=== PATIENT | female | born 1950 | race Caucasian/White ===

== ENCOUNTER 2018-01-21 15:08 | Inpatient (IN) | payer OTHER ==
[~2018-01-21] VITALS: Ht 154.9 cm; Wt 121.1 kg
[~2018-01-21 15:08] MED LIST: ANTACID PO; ASPIR 8181 M1 PO; CARDIZEM CD,CA180 MG PO; CARDIZEM120 MG PO; CATAPRES0.3 MG PO; CHOLESTROL MED PO; CLONIDINE PO; COMBIGAN O20 DROP/5 LEFT EYE; DIAMOX250 MG PO; DIOVAN320 MG PO; DULERA 100 MCG/13 GM IH; EXFORGE 5/321 TABLET PO; FAMOTIDINE20 MG PO; HYDROCHLOROTH12.5 M3 PO; ISOPTO CARPINE15 M1 LEFT EYE; LATANOPROST2.5 ML BOTH EYES; LISINOPRIL PO; MELOXICAM15 MG PO; METFORMIN HCL1000 MG PO; METFORMIN PO; MULTIVITAMIN1 EAC2; SERTRALINE HCL50 MG PO; SERTRALINE PO; VENTOLIN HFA18 GM IH; ZITHROMAX Z-PA250 MG PO; clonidine; metformin; sertraline
[2018-01-21 15:43] LABS: HEMATOCRIT 31.4 % (36.0-46.0); HEMOGLOBIN 10.4 G/DL (11.9-15.5); MCH 28.7 PG (29.0-34.0); MCHC 33.1 G/DL (30.0-36.0); MCV 86.5 FL (83-99); PLATELET COUNT 273 K/uL (156-360); RBC DIS.WIDTH-CV 14.6 % (11.8-14.6); RBC DIS.WIDTH-SD 45.6 % (39-53); RED BLOOD COUNT 3.63 M/uL (3.80-5.20); WHITE BLOOD COUNT 8.5 K/uL (4.1-10.2)
[2018-01-21 16:03] LABS: TROP-I INTERPRETATION NEGATIVE; TROPONIN-I < 0.01 ng/mL (0.0-0.30)
[2018-01-21 16:11] LABS: CHLORIDE 109 MEQ/L (99-109); POTASSIUM 4.8 MEQ/L (3.7-5.4); SODIUM 138 MEQ/L (136-147)
[2018-01-21 16:16] LABS: CREATININE 2.2 MG/DL (0.6-1.3); GFR ESTIMATE (CALCULATED) 24 mL/min/; GLUCOSE 193 mg/dL (70-99); UREA NITROGEN (BUN) 52 mg/dL (9-23)
[2018-01-21] MEDS ORDERED: CARDIZEM120 MG PO ×2 (19:46→19:47)
[2018-01-21] MEDS ORDERED: APRESOLINE50 MG PO (19:47)
[2018-01-21] MEDS ORDERED: HYDROCHLOROTHIA25 MG PO (19:47)
[2018-01-21] MEDS ORDERED: TRAMADOL HCL50 MG PO (19:48)
[2018-01-21] MEDS ORDERED: TYLENOL ARTHRI650 MG PO (19:48)
[2018-01-21] MEDS ORDERED: TOUJEO SOL300 UNIT/1 SC (19:48)
[2018-01-21] MEDS ORDERED: BUSPAR10 MG PO (19:48)
[2018-01-21] MEDS ORDERED: HUMALOG100 UNIT/2 SC (19:49)
[2018-01-21] MEDS ORDERED: VENTOLIN HFA18 GM IH (19:49)
[2018-01-21] MEDS ORDERED: CO Q-10200 MG PO (19:49)
[2018-01-21] MEDS ORDERED: VITAMIN D32000 UNI1 PO (19:49)
[2018-01-21 21:49] LABS: BASE EXCESS -6.3 mEq/L (-3 to +3); BICARBONATE 19.7 mEq/L (22-26); CARBOXY HGB 1.8 % (0-5); PCO2 40 mm Hg (35-45); PO2 45 mm Hg (80-100)
[2018-01-21 21:50] LABS: COMMENTS - BLOOD GASES C+ DR IS AWARE; DEVICE NC; O2 FLOW 2 L/MIN; SITE RR; TOTAL RESP RATE 16 resp/min
[2018-01-21 23:14] VITALS: BP 153/67
[2018-01-22] VITALS (7 sets, daily range): BP systolic 120–185; BP diastolic 56–79
[2018-01-22 05:37] LABS: HEMATOCRIT 33.4 % (36.0-46.0); HEMOGLOBIN 10.7 G/DL (11.9-15.5); MCH 28.2 PG (29.0-34.0); MCV 88.1 FL (83-99); PLATELET COUNT 328 K/uL (156-360); RBC DIS.WIDTH-CV 14.5 % (11.8-14.6); RBC DIS.WIDTH-SD 46.6 % (39-53); RED BLOOD COUNT 3.79 M/uL (3.80-5.20); WHITE BLOOD COUNT 11.1 K/uL (4.1-10.2)
[2018-01-22 06:09] LABS: CHLORIDE 105 MEQ/L (99-109); GFR ESTIMATE (CALCULATED) 17 mL/min/; POTASSIUM 5.2 MEQ/L (3.7-5.4); SODIUM 138 MEQ/L (136-147); UREA NITROGEN (BUN) 58 mg/dL (9-23)
[2018-01-22 06:29] LABS: GLUCOSE 385 mg/dL (70-99)
[2018-01-22 19:04] LABS: COMMENTS - BLOOD GASES C+A+; DEVICE NO DEVICE; FI02 21 %; O2 FLOW 0 L/MIN; PCO2 37 mm Hg (35-45); PO2 61 mm Hg (80-100); SITE RR
[2018-01-22 19:05] LABS: BASE EXCESS -9.2 mEq/L (-3 to +3); BICARBONATE 17 mEq/L (22-26); CARBOXY HGB 1.2 % (0-5); METHEMOGLOBIN 0.9 % (0-1.5); pH 7.27 (7.35-7.45)
[2018-01-22 21:45] LABS: ALBUMIN 4.3 G/DL (3.2-4.8); ALKALINE PHOSPHATASE 63 IU/L (3-129); ALT (GPT) 25 IU/L (3-49); AST (GOT) 18 IU/L (2-34); CHLORIDE 100 MEQ/L (99-109); CREATININE 3.4 MG/DL (0.6-1.3); GFR ESTIMATE (CALCULATED) 14 mL/min/; GLUCOSE 285 mg/dL (70-99); POTASSIUM 5.7 MEQ/L (3.7-5.4); SODIUM 132 MEQ/L (136-147); TOTAL BILIRUBIN 0.3 MG/DL (0.0-1.0); TOTAL PROTEIN 6.8 G/DL (6.4-8.3); UREA NITROGEN (BUN) 77 mg/dL (9-23)
[2018-01-22 23:51] LABS: BASE EXCESS -11.6 mEq/L (-3 to +3); BICARBONATE 14.4 mEq/L (22-26); CARBOXY HGB 1.1 % (0-5); COMMENTS - BLOOD GASES C+A+; DEVICE NC; METHEMOGLOBIN 0.7 % (0-1.5); O2 FLOW 2 L/MIN; PCO2 32 mm Hg (35-45); PO2 65 mm Hg (80-100); SITE RR
[2018-01-22 23:52] LABS: pH 7.26 (7.35-7.45)
[2018-01-23] VITALS (30 sets, daily range): BP systolic 70–182; BP diastolic 32–100
[2018-01-23 00:26] LABS: BASOPHIL (%) 0.1 % (0-1); EOSINOPHIL (%) 0 % (0-5); HEMATOCRIT 30.7 % (36.0-46.0); HEMOGLOBIN 10.4 G/DL (11.9-15.5); IMMATURE GRANULOCYTE (%) 1.5 % (0.0-0.7); LYMPHOCYTE (%) 4.3 % (15-42); LYMPHOCYTE COUNT 0.7 K/uL (1.0-2.8); MCH 29.1 PG (29.0-34.0); MCHC 33.9 G/DL (30.0-36.0); MCV 85.8 FL (83-99); MONOCYTE (%) 1.6 % (3-12); MONOCYTE COUNT 0.3 K/uL (0-0.8); NEUTROPHIL (%) 92.5 % (45-76); NEUTROPHIL COUNT 15.7 K/uL (1.8-6.4); NRBC (%) 0.1 /100 WBC (0-0); PLATELET COUNT 337 K/uL (156-360); RBC DIS.WIDTH-CV 14.6 % (11.8-14.6); RBC DIS.WIDTH-SD 45.3 % (39-53); RED BLOOD COUNT 3.58 M/uL (3.80-5.20)
[2018-01-23 00:53] LABS: ALBUMIN 3.8 G/DL (3.2-4.8); ALKALINE PHOSPHATASE 56 IU/L (3-129); ALT (GPT) 24 IU/L (3-49); AST (GOT) 19 IU/L (2-34); CHLORIDE 101 MEQ/L (99-109); GLUCOSE 301 mg/dL (70-99); SODIUM 129 MEQ/L (136-147); UREA NITROGEN (BUN) 83 mg/dL (9-23)
[2018-01-23 00:56] LABS: POTASSIUM 6.4 MEQ/L (3.7-5.4); TOTAL BILIRUBIN 0.2 MG/DL (0.0-1.0); TROP-I INTERPRETATION NEGATIVE; TROPONIN-I 0.05 ng/mL (0.0-0.30)
[2018-01-23 01:59] LABS: CREATININE 3.6 MG/DL (0.6-1.3); GFR ESTIMATE (CALCULATED) 13 mL/min/
[2018-01-23 04:58] LABS: HEMATOCRIT 31.1 % (36.0-46.0); HEMOGLOBIN 10.1 G/DL (11.9-15.5); MCH 28.4 PG (29.0-34.0); MCHC 32.5 G/DL (30.0-36.0); MCV 87.4 FL (83-99); NRBC (%) 0.2 /100 WBC (0-0); PLATELET COUNT 282 K/uL (156-360); RBC DIS.WIDTH-CV 14.6 % (11.8-14.6); RBC DIS.WIDTH-SD 46.8 % (39-53); RED BLOOD COUNT 3.56 M/uL (3.80-5.20); WHITE BLOOD COUNT 17.1 K/uL (4.1-10.2)
[2018-01-23 06:13] LABS: ALBUMIN 3.6 G/DL (3.2-4.8); ALKALINE PHOSPHATASE 62 IU/L (3-129); ALT (GPT) 74 IU/L (3-49); AST (GOT) 90 IU/L (2-34); CHLORIDE 102 MEQ/L (99-109); CREATININE 3.6 MG/DL (0.6-1.3); GFR ESTIMATE (CALCULATED) 13 mL/min/; GLUCOSE 253 mg/dL (70-99); POTASSIUM 5.9 MEQ/L (3.7-5.4); SODIUM 136 MEQ/L (136-147); TOTAL BILIRUBIN 0.3 MG/DL (0.0-1.0); TOTAL PROTEIN 5.7 G/DL (6.4-8.3); UREA NITROGEN (BUN) 88 mg/dL (9-23)
[2018-01-23 06:16] LABS: ALBUMIN 3.6 G/DL (3.2-4.8); CHLORIDE 102 MEQ/L (99-109); CREATININE 3.6 MG/DL (0.6-1.3); GFR ESTIMATE (CALCULATED) 13 mL/min/; GLUCOSE 257 mg/dL (70-99); POTASSIUM 5.6 MEQ/L (3.7-5.4); SODIUM 135 MEQ/L (136-147); UREA NITROGEN (BUN) 86 mg/dL (9-23); URIC ACID 8.1 mg/dL (3.1-9.2)
[2018-01-23 07:30] LABS: BICARBONATE 20.7 mEq/L (22-26); METHEMOGLOBIN 0.5 % (0-1.5); PCO2 45 mm Hg (35-45); PO2 52 mm Hg (80-100)
[2018-01-23 07:31] LABS: COMMENTS - BLOOD GASES A+C+; DEVICE NC; O2 FLOW 5 L/MIN; SITE RR; pH 7.27 (7.35-7.45)
[2018-01-23 10:34] LABS: TROP-I INTERPRETATION NEGATIVE; TROPONIN-I 0.07 ng/mL (0.0-0.30)
[2018-01-23 12:51] LABS: URINE TOTAL PROTEIN 74 MG/DL (0-10)
[2018-01-23 13:10] LABS: APPEARANCE CLEAR ((CLEAR)); BILIRUBIN NEGATIVE; BLOOD SMALL; COLOR STRAW ((YELLOW)); GLUCOSE (STRIP) 50; KETONES NEGATIVE; LEUKOCYTES NEGATIVE; NITRITE NEGATIVE; PROTEIN (STRIP) 100; SPECIFIC GRAVITY 1.011 (1.000-1.030); UROBILINOGEN 0.2 MG/DL (0.2-1.0)
[2018-01-23 13:13] LABS: BACTERIA NONE SEEN /HPF; EPITHELIAL CELLS RARE /HPF; MUCUS TRACE /LPF; RED BLOOD CELLS 0-5 /HPF (0-5); WHITE BLOOD CELLS 0-5 /HPF (0-5)
[2018-01-23 17:19] LABS: APPEARANCE CLEAR ((CLEAR)); BILIRUBIN NEGATIVE; BLOOD SMALL; COLOR STRAW ((YELLOW)); GLUCOSE (STRIP) 50; KETONES NEGATIVE; LEUKOCYTES NEGATIVE; NITRITE NEGATIVE; PROTEIN (STRIP) 100; SPECIFIC GRAVITY 1.011 (1.000-1.030); UROBILINOGEN 0.2 MG/DL (0.2-1.0)
[2018-01-23 17:20] LABS: BACTERIA NONE SEEN /HPF; EPITHELIAL CELLS RARE /HPF; MUCUS TRACE /LPF; RED BLOOD CELLS 0-5 /HPF (0-5); WHITE BLOOD CELLS 0-5 /HPF (0-5)
[2018-01-23 18:31] LABS: CHLORIDE 105 mEq/L (99-109); POTASSIUM 5.8 mEq/L (3.7-5.4); SODIUM 135 mEq/L (136-147)
[2018-01-23 18:32] LABS: GLUCOSE 199 mg/dL (70-99)
[2018-01-23 18:36] LABS: CREATININE 4.1 mg/dL (0.6-1.3); GFR ESTIMATE (CALCULATED) 12 mL/min/
[2018-01-23 18:37] LABS: UREA NITROGEN (BUN) 82 mg/dL (9-23)
[2018-01-24] VITALS (23 sets, daily range): BP systolic 146–226; BP diastolic 42–122
[2018-01-24 05:19] LABS: BASOPHIL (%) 0.1 % (0-1); EOSINOPHIL (%) 0 % (0-5); HEMATOCRIT 28.5 % (36.0-46.0); HEMOGLOBIN 9.3 G/DL (11.9-15.5); IMMATURE GRANULOCYTE (%) 2.3 % (0.0-0.7); LYMPHOCYTE COUNT 0.5 K/uL (1.0-2.8); MCH 28.3 PG (29.0-34.0); MCHC 32.6 G/DL (30.0-36.0); MCV 86.6 FL (83-99); MONOCYTE (%) 1.8 % (3-12); MONOCYTE COUNT 0.2 K/uL (0-0.8); NEUTROPHIL (%) 91.8 % (45-76); PLATELET COUNT 223 K/uL (156-360); RBC DIS.WIDTH-CV 14.6 % (11.8-14.6); RBC DIS.WIDTH-SD 46.3 % (39-53); RED BLOOD COUNT 3.29 M/uL (3.80-5.20)
[2018-01-24 06:51] LABS: ALBUMIN 3.3 G/DL (3.2-4.8); CHLORIDE 103 MEQ/L (99-109); CREATININE 3.9 MG/DL (0.6-1.3); GFR ESTIMATE (CALCULATED) 12 mL/min/; GLUCOSE 149 mg/dL (70-99); IRON 71 MCG/DL (35-150); PHOSPHORUS 7.3 mg/dL (2.5-4.9); SODIUM 141 MEQ/L (136-147); TRANSFERRIN (TIBC) 248.3 mg/dL (215-380); TRANSFERRIN SATUR. 29 % (20-55); UREA NITROGEN (BUN) 87 mg/dL (9-23)
[2018-01-24 08:34] LABS: THYROTROPIN (TSH) 0.19 MIU/L (0.4-5.5)
[2018-01-25] VITALS (7 sets, daily range): BP systolic 142–193; BP diastolic 62–81
[2018-01-25 06:27] LABS: BASOPHIL (%) 0.3 % (0-1); EOSINOPHIL (%) 0.1 % (0-5); HEMATOCRIT 30.3 % (36.0-46.0); IMMATURE GRANULOCYTE (%) 3.2 % (0.0-0.7); LYMPHOCYTE (%) 4.4 % (15-42); LYMPHOCYTE COUNT 0.7 K/uL (1.0-2.8); MCH 28.4 PG (29.0-34.0); MCV 86.1 FL (83-99); MONOCYTE (%) 2.8 % (3-12); MONOCYTE COUNT 0.4 K/uL (0-0.8); NEUTROPHIL (%) 89.2 % (45-76); NEUTROPHIL COUNT 13.3 K/uL (1.8-6.4); NRBC (%) 0.3 /100 WBC (0-0); PLATELET COUNT 275 K/uL (156-360); RBC DIS.WIDTH-CV 14.6 % (11.8-14.6); RBC DIS.WIDTH-SD 45.1 % (39-53); RED BLOOD COUNT 3.52 M/uL (3.80-5.20); WHITE BLOOD COUNT 14.9 K/uL (4.1-10.2)
[2018-01-25 07:02] LABS: CHLORIDE 99 MEQ/L (99-109); CREATININE 4.3 MG/DL (0.6-1.3); GFR ESTIMATE (CALCULATED) 11 mL/min/; PHOSPHORUS 7.2 mg/dL (2.5-4.9); POTASSIUM 4.3 MEQ/L (3.7-5.4); SODIUM 138 MEQ/L (136-147)
[2018-01-25 07:05] LABS: GLUCOSE 226 mg/dL (70-99); UREA NITROGEN (BUN) 101 mg/dL (9-23)
[2018-01-26 03:54] VITALS: BP 138/80
[2018-01-26 06:00] LABS: BASOPHIL (%) 0.3 % (0-1); EOSINOPHIL (%) 0 % (0-5); HEMATOCRIT 29.7 % (36.0-46.0); HEMOGLOBIN 9.7 G/DL (11.9-15.5); IMMATURE GRANULOCYTE (%) 4.1 % (0.0-0.7); LYMPHOCYTE COUNT 0.6 K/uL (1.0-2.8); MCH 28.3 PG (29.0-34.0); MCHC 32.7 G/DL (30.0-36.0); MCV 86.6 FL (83-99); MONOCYTE (%) 6.2 % (3-12); MONOCYTE COUNT 0.7 K/uL (0-0.8); NEUTROPHIL (%) 84.4 % (45-76); NRBC (%) 0.2 /100 WBC (0-0); PLATELET COUNT 236 K/uL (156-360); RBC DIS.WIDTH-CV 14.4 % (11.8-14.6); RBC DIS.WIDTH-SD 46.3 % (39-53); RED BLOOD COUNT 3.43 M/uL (3.80-5.20); WHITE BLOOD COUNT 11.8 K/uL (4.1-10.2)
[2018-01-26 06:50] LABS: ALBUMIN 3.8 G/DL (3.2-4.8); CHLORIDE 100 MEQ/L (99-109); CREATININE 4.3 MG/DL (0.6-1.3); GFR ESTIMATE (CALCULATED) 11 mL/min/; GLUCOSE 201 mg/dL (70-99); PHOSPHORUS 7.1 mg/dL (2.5-4.9); POTASSIUM 3.8 MEQ/L (3.7-5.4); SODIUM 139 MEQ/L (136-147)
[2018-01-26 06:54] LABS: UREA NITROGEN (BUN) 107 mg/dL (9-23)
[2018-01-26 07:15] LABS: CREATINE KINASE 243 IU/L (1-294)
[2018-01-26 07:40] VITALS: BP 130/56
[2018-01-26 11:39] VITALS: BP 192/58
[2018-01-26 15:00] VITALS: BP 144/58
[2018-01-26 19:47] VITALS: BP 170/65
[2018-01-27 00:54] VITALS: BP 165/58
[2018-01-27 05:09] VITALS: BP 160/65
[2018-01-27 06:22] LABS: BASOPHIL (%) 0.4 % (0-1); BASOPHIL COUNT 0.1 K/uL (0-0.1); EOSINOPHIL (%) 0.1 % (0-5); HEMATOCRIT 30.3 % (36.0-46.0); HEMOGLOBIN 10.1 G/DL (11.9-15.5); IMMATURE GRANULOCYTE (%) 4.3 % (0.0-0.7); LYMPHOCYTE (%) 9.3 % (15-42); LYMPHOCYTE COUNT 1.3 K/uL (1.0-2.8); MCH 28.7 PG (29.0-34.0); MCHC 33.3 G/DL (30.0-36.0); MCV 86.1 FL (83-99); MONOCYTE COUNT 1.3 K/uL (0-0.8); NEUTROPHIL (%) 76.9 % (45-76); NEUTROPHIL COUNT 11.1 K/uL (1.8-6.4); NRBC (%) 0.2 /100 WBC (0-0); PLATELET COUNT 246 K/uL (156-360); RBC DIS.WIDTH-CV 14.4 % (11.8-14.6); RBC DIS.WIDTH-SD 44.5 % (39-53); RED BLOOD COUNT 3.52 M/uL (3.80-5.20); WHITE BLOOD COUNT 14.4 K/uL (4.1-10.2)
[2018-01-27 06:57] LABS: ALBUMIN 3.9 G/DL (3.2-4.8); CHLORIDE 102 MEQ/L (99-109); CREATININE 4.4 MG/DL (0.6-1.3); GFR ESTIMATE (CALCULATED) 11 mL/min/; PHOSPHORUS 6.7 mg/dL (2.5-4.9); POTASSIUM 3.3 MEQ/L (3.7-5.4); SODIUM 141 MEQ/L (136-147)
[2018-01-27 06:58] LABS: GLUCOSE 117 mg/dL (70-99); UREA NITROGEN (BUN) 113 mg/dL (9-23)
[2018-01-27 07:56] VITALS: BP 158/72
[2018-01-27 11:28] VITALS: BP 139/70
[2018-01-27 11:59] LABS: ANTI-HEPATITIS B CORE (TOTAL) Nonreactive; HEPATITIS B SURFACE ANTIGEN Nonreactive
[2018-01-27 12:00] LABS: HEPATITIS B SURFACE ANTIBODY Nonreactive
[2018-01-27 12:08] LABS: HEPATITIS B SURFACE ANTIGEN Nonreactive; HEPATITIS C ANTIBODY Nonreactive
[2018-01-27 12:10] LABS: ANTI-HEPATITIS A VIRUS (IGM) Nonreactive
[2018-01-27 12:12] LABS: ANTI-HEPATITIS B CORE (IGM) Nonreactive
[2018-01-27 17:29] VITALS: BP 178/73
[2018-01-28] VITALS (7 sets, daily range): BP systolic 150–178; BP diastolic 50–80
[2018-01-28 06:55] LABS: ALBUMIN 3.3 G/DL (3.2-4.8); CHLORIDE 102 MEQ/L (99-109); GLUCOSE 144 mg/dL (70-99); PHOSPHORUS 4.5 mg/dL (2.5-4.9); SODIUM 143 MEQ/L (136-147); UREA NITROGEN (BUN) 66 mg/dL (9-23)
[2018-01-28 07:02] LABS: CREATININE 3.3 MG/DL (0.6-1.3); GFR ESTIMATE (CALCULATED) 15 mL/min/
[2018-01-28 09:28] LABS: ALBUMIN 3.4 G/DL (3.2-4.8); CHLORIDE 101 MEQ/L (99-109); CREATININE 3.2 MG/DL (0.6-1.3); GFR ESTIMATE (CALCULATED) 15 mL/min/; GLUCOSE 196 mg/dL (70-99); PHOSPHORUS 4.1 mg/dL (2.5-4.9); POTASSIUM 3.7 MEQ/L (3.7-5.4); SODIUM 140 MEQ/L (136-147); UREA NITROGEN (BUN) 71 mg/dL (9-23)
[2018-01-28 09:43] LABS: BASOPHIL (%) 0.2 % (0-1); EOSINOPHIL (%) 1.4 % (0-5); EOSINOPHIL COUNT 0.2 K/uL (0-0.3); HEMATOCRIT 28.2 % (36.0-46.0); HEMOGLOBIN 9.2 G/DL (11.9-15.5); IMMATURE GRANULOCYTE (%) 2.3 % (0.0-0.7); LYMPHOCYTE (%) 10.3 % (15-42); LYMPHOCYTE COUNT 1.2 K/uL (1.0-2.8); MCH 28.5 PG (29.0-34.0); MCHC 32.6 G/DL (30.0-36.0); MCV 87.3 FL (83-99); MONOCYTE (%) 7.9 % (3-12); MONOCYTE COUNT 0.9 K/uL (0-0.8); NEUTROPHIL (%) 77.9 % (45-76); NEUTROPHIL COUNT 9.3 K/uL (1.8-6.4); PLAT.SUFFICIENCY ADEQUATE; RBC DIS.WIDTH-CV 14.1 % (11.8-14.6); RBC DIS.WIDTH-SD 45.4 % (39-53); RED BLOOD COUNT 3.23 M/uL (3.80-5.20)
[2018-01-28 09:44] LABS: PLATELET COUNT 169 K/uL (156-360)
[2018-01-29 06:45] LABS: ALBUMIN 3.2 G/DL (3.2-4.8); CHLORIDE 104 MEQ/L (99-109); CREATININE 2.8 MG/DL (0.6-1.3); GFR ESTIMATE (CALCULATED) 18 mL/min/; GLUCOSE 124 mg/dL (70-99); PHOSPHORUS 4.2 mg/dL (2.5-4.9); POTASSIUM 4.2 MEQ/L (3.7-5.4); SODIUM 143 MEQ/L (136-147); UREA NITROGEN (BUN) 50 mg/dL (9-23)
[2018-01-29 07:34] VITALS: BP 182/72
[2018-01-29 10:43] VITALS: BP 167/74
[2018-01-29 12:02] VITALS: BP 191/74
[2018-01-29 17:23] VITALS: BP 171/72
[2018-01-29 19:55] VITALS: BP 162/78
[2018-01-29 23:09] VITALS: BP 150/66
[2018-01-30 03:57] VITALS: BP 178/82
[2018-01-30 08:26] VITALS: BP 170/70
[2018-01-30 08:48] LABS: HEMATOCRIT 29.7 % (36.0-46.0); HEMOGLOBIN 9.6 G/DL (11.9-15.5); MCH 28.9 PG (29.0-34.0); MCHC 32.3 G/DL (30.0-36.0); MCV 89.5 FL (83-99); PLATELET COUNT 175 K/uL (156-360); RBC DIS.WIDTH-CV 14.3 % (11.8-14.6); RED BLOOD COUNT 3.32 M/uL (3.80-5.20); WHITE BLOOD COUNT 12.5 K/uL (4.1-10.2)
[2018-01-30 09:15] LABS: CHLORIDE 101 mEq/L (99-109); POTASSIUM 4.3 mEq/L (3.7-5.4); SODIUM 142 mEq/L (136-147)
[2018-01-30 09:17] LABS: GLUCOSE 163 mg/dL (70-99)
[2018-01-30 09:21] LABS: CREATININE 3.2 mg/dL (0.6-1.3); GFR ESTIMATE (CALCULATED) 15 mL/min/
[2018-01-30 09:22] LABS: UREA NITROGEN (BUN) 53 mg/dL (9-23)
[2018-01-30 11:36] VITALS: BP 172/72
[2018-01-30 14:38] LABS: INTER. NORMALIZED RATIO 0.9
[2018-01-30 16:05] VITALS: BP 173/70
[2018-01-30 19:52] VITALS: BP 172/76
[2018-01-31 00:06] VITALS: BP 168/70
[2018-01-31 05:00] VITALS: BP 180/75
[2018-01-31 06:25] LABS: BASOPHIL (%) 0.2 % (0-1); EOSINOPHIL (%) 1.7 % (0-5); EOSINOPHIL COUNT 0.2 K/uL (0-0.3); HEMATOCRIT 30.1 % (36.0-46.0); HEMOGLOBIN 9.6 G/DL (11.9-15.5); IMMATURE GRANULOCYTE (%) 2.7 % (0.0-0.7); LYMPHOCYTE (%) 8.5 % (15-42); LYMPHOCYTE COUNT 0.9 K/uL (1.0-2.8); MCH 28.7 PG (29.0-34.0); MCHC 31.9 G/DL (30.0-36.0); MCV 90.1 FL (83-99); MONOCYTE (%) 5.2 % (3-12); MONOCYTE COUNT 0.6 K/uL (0-0.8); NEUTROPHIL (%) 81.7 % (45-76); NEUTROPHIL COUNT 8.8 K/uL (1.8-6.4); PLATELET COUNT 179 K/uL (156-360); RBC DIS.WIDTH-SD 46.5 % (39-53); RED BLOOD COUNT 3.34 M/uL (3.80-5.20); WHITE BLOOD COUNT 10.8 K/uL (4.1-10.2)
[2018-01-31 06:46] LABS: CHLORIDE 101 MEQ/L (99-109); CREATININE 3.4 MG/DL (0.6-1.3); GFR ESTIMATE (CALCULATED) 14 mL/min/; GLUCOSE 145 mg/dL (70-99); POTASSIUM 4.7 MEQ/L (3.7-5.4); SODIUM 139 MEQ/L (136-147); UREA NITROGEN (BUN) 50 mg/dL (9-23)
[2018-01-31 08:34] VITALS: BP 164/72
[2018-01-31 09:36] LABS: BASOPHIL (%) 0.2 % (0-1); EOSINOPHIL (%) 1.6 % (0-5); EOSINOPHIL COUNT 0.2 K/uL (0-0.3); HEMATOCRIT 28.5 % (36.0-46.0); HEMOGLOBIN 9.2 G/DL (11.9-15.5); IMMATURE GRANULOCYTE (%) 2.3 % (0.0-0.7); LYMPHOCYTE (%) 11.3 % (15-42); LYMPHOCYTE COUNT 1.4 K/uL (1.0-2.8); MCHC 32.3 G/DL (30.0-36.0); MCV 89.9 FL (83-99); MONOCYTE (%) 4.9 % (3-12); MONOCYTE COUNT 0.6 K/uL (0-0.8); NEUTROPHIL (%) 79.7 % (45-76); NEUTROPHIL COUNT 9.6 K/uL (1.8-6.4); PLATELET COUNT 188 K/uL (156-360); RBC DIS.WIDTH-SD 45.7 % (39-53); RED BLOOD COUNT 3.17 M/uL (3.80-5.20)
[2018-01-31 09:55] LABS: ALBUMIN 3.4 G/DL (3.2-4.8); CHLORIDE 98 MEQ/L (99-109); CREATININE 3.3 MG/DL (0.6-1.3); GFR ESTIMATE (CALCULATED) 15 mL/min/; GLUCOSE 205 mg/dL (70-99); PHOSPHORUS 4.7 mg/dL (2.5-4.9); POTASSIUM 4.4 MEQ/L (3.7-5.4); SODIUM 139 MEQ/L (136-147); UREA NITROGEN (BUN) 49 mg/dL (9-23)
[2018-01-31] MEDS ORDERED: COUMADIN7.5 MG PO (12:03)
[2018-01-31] MEDS ORDERED: APRESOLINE100 MG PO (12:04)
[2018-01-31] MEDS ORDERED: LOSARTAN POTASS50 MG PO (12:05)
[2018-01-31] MEDS ORDERED: BYSTOLIC5 MG PO (12:05)
[2018-01-31] MEDS ORDERED: NIFEDIPINE ER60 MG PO (12:05)
[2018-01-31] MEDS ORDERED: BUMETANIDE1 MG PO (12:06)
== END 2018-01-31 15:23 | disposition home health service (06) | DRG 190 ==
LOC: EME 15:08 → EDOF 20:50 → ENRESERV 20:57 → 4SOUTH 23:14 → 3EAST 01-22 10:28 → 4SOUTH 01-22 10:28 → 4WEST 01-22 10:28 → ENRESERV 01-23 00:02 → 4WEST 01-23 00:13 → ENRESERV 01-24 19:41 → 3EAST 01-24 22:47
PROVIDERS: Hospitalist; Internal Medicine; Internal Medicine Critical Care Medicine; Internal Medicine Nephrology; Physician Assistant; Physician Assistant Medical; Specialist
DX: J44.1 Chronic obstructive pulmonary disease with (acute) exacerbation (principal); N17.0 Acute kidney failure with tubular necrosis; J44.0 Chronic obstructive pulmonary disease with (acute) lower respiratory infection; J20.9 Acute bronchitis, unspecified; I49.5 Sick sinus syndrome; I44.39 Other atrioventricular block; E87.5 Hyperkalemia; E87.4 Mixed disorder of acid-base balance; E66.2 Morbid (severe) obesity with alveolar hypoventilation; Z68.43 Body mass index [BMI] 50.0-59.9, adult; I08.3 Combined rheumatic disorders of mitral, aortic and tricuspid valves; I12.9 Hypertensive chronic kidney disease with stage 1 through stage 4 chronic kidney disease, or unspecified chronic kidney disease; E11.22 Type 2 diabetes mellitus with diabetic chronic kidney disease; N18.4 Chronic kidney disease, stage 4 (severe); I27.20 Pulmonary hypertension, unspecified; I48.91 Unspecified atrial fibrillation; I95.9 Hypotension, unspecified; D72.829 Elevated white blood cell count, unspecified; E11.65 Type 2 diabetes mellitus with hyperglycemia; E11.42 Type 2 diabetes mellitus with diabetic polyneuropathy; T38.0X5A Adverse effect of glucocorticoids and synthetic analogues, initial encounter; R91.1 Solitary pulmonary nodule; R07.89 Other chest pain; K21.9 Gastro-esophageal reflux disease without esophagitis; D64.9 Anemia, unspecified; E78.5 Hyperlipidemia, unspecified; F41.9 Anxiety disorder, unspecified; H40.9 Unspecified glaucoma; F32.9 Major depressive disorder, single episode, unspecified; M19.90 Unspecified osteoarthritis, unspecified site; M25.561 Pain in right knee; M25.562 Pain in left knee; Z85.42 Personal history of malignant neoplasm of other parts of uterus; Z87.891 Personal history of nicotine dependence
CPT/HCPCS: 36600; 71045; 71046; 71250; 76775; 80048; 80048 91; 80053; 80069; 80074; 81003; 82010; 82550; 82570; 82803; 82948; 83540; 83605; 83735; 83880; 84145 90; 84156; 84439; 84443; 84466; 84484; 84550; 85025; 85025 91; 85027; 85379; 85610; 86335; 86704; 86706; 87340; 87449; 87641; 93005; 93306; 93970; 94640; 94644; 94660; 94664; 94799; 99281; 99285; C1750; C1894; C1898; G0378; J0360; J1644; J1815; J1940; J2060; J2250; J2405; J2543; J2920; J2930; J3010; J7030; J7050; J7070; J7120; S0020